=== PATIENT | female | born 1955 | race Caucasian/White ===

== ENCOUNTER 2022-06-12 17:46 | Inpatient (IN) | payer OTHER ==
[2022-06-12 19:15] LABS: ANION GAP 18.1 mEq/L (7-13); CHLORIDE,CL 99 mmol/L (98-107); SODIUM,NA 137 mmol/L (136-145)
[2022-06-12 19:22] LABS: ESTIMATED GFR 35 mL/min (>=60)
[2022-06-12] MEDS ORDERED: cefTRIAXone 1 GM in Sodium Chloride 0.9% 50 ML IV ONE (19:47)
[2022-06-12 20:26] LABS: CORONAVIRUS COVID-19 NAA NEGATIVE (NEGATIVE)
[2022-06-12] MEDS ORDERED: Sodium Chloride 0.9% 10 ML Syringe FLUSH PRN (21:04)
[2022-06-12] MEDS ORDERED: Polyethylene Glycol 3350 Powder 17 GM Packet PO PRN (21:04)
[2022-06-12] MEDS ORDERED: Acetaminophen/HYDROcodone 325-10 MG Tab PO PRN (21:04)
[2022-06-12] MEDS ORDERED: Ondansetron 4 MG/2 ML SDV IVPUSH PRN (21:04)
[2022-06-12] MEDS ORDERED: Magnesium Hydroxide 400 MG/5 ML Susp 30 ML Cup PO PRN (21:04)
[2022-06-12] MEDS ORDERED: HYDROmorphone 0.5 MG/0.5 ML Syringe IVPUSH PRN (21:04)
[2022-06-12] MEDS ORDERED: Albuterol/Ipratropium 3.0-0.5 MG/3 ML Neb Soln NEB PRN (21:04)
[2022-06-12] MEDS ORDERED: Zolpidem 5 MG Tab PO PRN (21:04)
[2022-06-12] MEDS ORDERED: 50% Dextrose in Water 50 ML Syringe IVPUSH PRN (21:09)
[2022-06-12] MEDS ORDERED: Glucagon,Human Recombinant 1 MG Vial IM PRN (21:09)
[2022-06-12] MEDS ORDERED: Dexamethasone 4 MG/ML SDV IVPUSH ONE (21:10)
[2022-06-12] MEDS ORDERED: diphenhydrAMINE 50 MG/ML SDV IVPUSH ONE (21:10)
[2022-06-12] MEDS ORDERED: Lactated Ringers 1,000 ML IV SCH ×2 (21:15)
[2022-06-12] MEDS ORDERED: Nystatin Topical Powder 30 GM Bottle TOP PRN (21:25)
[2022-06-12] MEDS ORDERED: Lactated Ringers 1,000 ML IV ONE (22:27)
[2022-06-13] MEDS: Acetaminophen 325 MG Tab PO PRN ×2 (00:37→16:58)
[2022-06-13] MEDS: Piperacillin/Tazobactam 3.375 GM in Sodium Chloride 0.9% 100 ML IV SCH ×4 (01:01→17:02)
[2022-06-13] MEDS: Lactated Ringers 1,000 ML IV SCH ×2 (01:35→11:50)
[2022-06-13 05:57] LABS: ANION GAP 17.1 mEq/L (7-13)
[2022-06-13] MEDS ORDERED: Magnesium Sulfate/Water 2 GM in Premix Bag 1 BAG IV ONE (08:01)
[2022-06-13] MEDS ORDERED: ANASTROZOLE 1 MG PO SCH (09:00)
[2022-06-13] MEDS ORDERED: [UNRECOGNIZED DRUG - OTHER] PO SCH (09:00)
[2022-06-13] MEDS ORDERED: VIT B COMPLEX AND C PO SCH (09:00)
[2022-06-13] MEDS ORDERED: FOLIC ACID PO SCH (09:00)
[2022-06-13] MEDS: Cholecalciferol (Vitamin D3) 25 MCG Tab PO SCH (09:18)
[2022-06-13] MEDS: Saccharomyces Boulardii (Probiotic) 250 MG Cap PO SCH ×2 (09:18→20:35)
[2022-06-13] MEDS: Insulin Lispro 100 Units/ML 3 ML Vial SUBCUT SCH ×3 (09:18→18:15)
[2022-06-13] MEDS: Sodium Chloride 0.9% 10 ML Syringe FLUSH SCH ×2 (10:29→20:36)
[2022-06-13] MEDS ORDERED: Lactated Ringers 1,000 ML IV ONE (18:10)
[2022-06-13] MEDS ORDERED: KETOCONAZOLE TOP PRN (18:12)
[2022-06-13] MEDS ORDERED: VANCOMYCIN IV SCH (18:15)
[2022-06-13] MEDS ORDERED: SODIUM CHLORIDE 0.9% IV SCH (18:15)
[2022-06-13] MEDS ORDERED: Vancomycin 2 GM in Sodium Chloride 0.9% 500 ML IV ONE (18:45)
[2022-06-13] MEDS: Doxazosin 2 MG Tab PO SCH (20:34)
[2022-06-13] MEDS: atorvaSTATin 10 MG Tab PO SCH (20:35)
[2022-06-13] MEDS ORDERED: Non-Formulary Medication 1 Each (Betamethasone Dipropionate [Betamethasone Diprop Augmente TOP SCH (21:00)
[2022-06-13] MEDS ORDERED: Non-Formulary Medication 1 Each (Melatonin [Melatonin] 5 MG Tablet) PO SCH (21:00)
[2022-06-13] MEDS: Heparin Sodium 5,000 Units/ML Vial SUBCUT SCH (21:43)
[2022-06-13] MEDS: Meropenem 1 GM SDV IVPUSH SCH (21:51)
[2022-06-13] MEDS ORDERED: Meropenem 1 GM in Sodium Chloride 0.9% 100 ML IV SCH (22:00)
[2022-06-13] MEDS ORDERED: Meropenem 1 GM in Sodium Chloride 0.9% 100 ML IV ONE (23:00)
[2022-06-14] MEDS: Lactated Ringers 1,000 ML IV SCH ×4 (00:42→23:42)
[2022-06-14] MEDS: Heparin Sodium 5,000 Units/ML Vial SUBCUT SCH ×3 (05:45→21:13)
[2022-06-14] MEDS: Pantoprazole 40 MG Tab.CR PO SCH ×2 (05:45→15:40)
[2022-06-14] MEDS: Saccharomyces Boulardii (Probiotic) 250 MG Cap PO SCH ×2 (09:13→21:14)
[2022-06-14] MEDS: Cholecalciferol (Vitamin D3) 25 MCG Tab PO SCH (09:13)
[2022-06-14] MEDS: Meropenem 1 GM SDV IVPUSH SCH ×2 (09:14→21:13)
[2022-06-14] MEDS: Insulin Lispro 100 Units/ML 3 ML Vial SUBCUT SCH ×3 (09:54→16:38)
[2022-06-14] MEDS: Sodium Chloride 0.9% 10 ML Syringe FLUSH SCH ×2 (10:14→21:14)
[2022-06-14] MEDS: atorvaSTATin 10 MG Tab PO SCH (21:14)
[2022-06-14] MEDS: Doxazosin 2 MG Tab PO SCH (21:14)
[2022-06-14] MEDS ORDERED: Water For Injection, Sterile 20 ML ONE (21:22)
[2022-06-15] MEDS: Heparin Sodium 5,000 Units/ML Vial SUBCUT SCH (06:01)
[2022-06-15] MEDS: Pantoprazole 40 MG Tab.CR PO SCH (06:01)
[2022-06-15] MEDS: Lactated Ringers 1,000 ML IV SCH (06:37)
[2022-06-15 06:44] LABS: ANION GAP 11.5 mEq/L (7-13)
[2022-06-15] MEDS: Saccharomyces Boulardii (Probiotic) 250 MG Cap PO SCH (09:17)
[2022-06-15] MEDS: Insulin Lispro 100 Units/ML 3 ML Vial SUBCUT SCH (09:17)
[2022-06-15] MEDS: Cholecalciferol (Vitamin D3) 25 MCG Tab PO SCH (09:17)
[2022-06-15] MEDS: Sodium Chloride 0.9% 10 ML Syringe FLUSH SCH (09:18)
[2022-06-15] MEDS: Meropenem 1 GM SDV IVPUSH SCH (09:19)
== END 2022-06-15 10:12 | disposition home or self-care (01) | DRG 871 ==
LOC: DL.ED 17:46 → DL.MS 20:52
PROVIDERS: ADMIT Internal Medicine; ATTEND Internal Medicine
DX: A41.51 Sepsis due to Escherichia coli [E. coli] (principal); G93.41 Metabolic encephalopathy; N39.0 Urinary tract infection, site not specified; N17.9 Acute kidney failure, unspecified; E87.2 Acidosis; Z68.43 Body mass index [BMI] 50.0-59.9, adult; E86.0 Dehydration; Z20.822 Contact with and (suspected) exposure to COVID-19; E11.65 Type 2 diabetes mellitus with hyperglycemia; E88.09 Other disorders of plasma-protein metabolism, not elsewhere classified; E88.81 Metabolic syndrome and other insulin resistance; G47.33 Obstructive sleep apnea (adult) (pediatric); B37.9 Candidiasis, unspecified; N81.4 Uterovaginal prolapse, unspecified; E66.01 Morbid (severe) obesity due to excess calories; R31.9 Hematuria, unspecified; Z88.8 Allergy status to other drugs, medicaments and biological substances; Z88.2 Allergy status to sulfonamides; Z79.899 Other long term (current) drug therapy
CPT/HCPCS: 0240U; 36415; 51702; 71045; 76770; 80053; 80202; 81001; 82306; 82947; 83605; 83735; 83880; 84145; 84439; 84443; 84484; 85025; 86140; 87040; 87086; 87088; 87186; 93005; 93010; 99285; A9270-GY; J0696; J1100; J1200; J1644; J1815-GY; J2185; J2543; J3370; J3475; J3490; J7040; J7120

== ENCOUNTER 2023-07-13 05:54 | Day surgery (SDC) | payer MEDICARE, OTHER ==
[2023-07-13] MEDS ORDERED: Dextrose 5%-0.45% NaCl 1,000 ML IV SCH (06:00)
[2023-07-13] MEDS ORDERED: fentaNYL 100 MCG/2 ML SDV ONE (06:11)
[2023-07-13] MEDS ORDERED: Midazolam 1 MG/ML 2 ML SDV ONE (06:11)
[2023-07-13] MEDS ORDERED: fentaNYL 100 MCG/2 ML SDV IV ONE ×2 (06:46→06:47)
[2023-07-13] MEDS ORDERED: Midazolam 1 MG/ML 2 ML SDV IV ONE ×2 (06:47→06:48)
== END 2023-07-13 08:45 | disposition home or self-care (01) ==
LOC: DL.ENDO 05:54
PROVIDERS: ATTEND Internal Medicine Gastroenterology
DX: Z12.11 Encounter for screening for malignant neoplasm of colon (principal); K57.30 Diverticulosis of large intestine without perforation or abscess without bleeding; H52.201 Unspecified astigmatism, right eye; E11.36 Type 2 diabetes mellitus with diabetic cataract; E78.5 Hyperlipidemia, unspecified; I10 Essential (primary) hypertension; E66.01 Morbid (severe) obesity due to excess calories; G47.33 Obstructive sleep apnea (adult) (pediatric); E87.6 Hypokalemia; Z88.2 Allergy status to sulfonamides; Z88.8 Allergy status to other drugs, medicaments and biological substances; Z91.048 Other nonmedicinal substance allergy status; Z98.49 Cataract extraction status, unspecified eye; Z68.42 Body mass index [BMI] 45.0-49.9, adult
CPT/HCPCS: J2250; J3010; J7042